=== PATIENT | male | born 1945 | race Caucasian/White ===

== ENCOUNTER 2017-08-23 15:45 | Emergency (ER) | payer MEDICARE ==
[~2017-08-23] VITALS: Ht 182.9 cm; Wt 81.6 kg
[2017-08-23] MEDS ORDERED: TRAZODONE HCL150 MG ORAL (15:50)
[2017-08-23] MEDS ORDERED: ABILIFY10 MG ORAL (15:50)
[2017-08-23] MEDS ORDERED: LATANOPROST2.5 ML BOTH EYES (15:50)
--- NOTE | 2017-08-23 15:58 | Emergency Room Report ---
History of Present Illness General Chief Complaint: Upper Respiratory Illness Source: Medical Record (Yossi Saavedra) Present Illness HPI 71-year-old male patient presents ER BIB ambulance from assisted living facility complaining of cough. patient reports coughing last night. Patient reports cough was keeping him up at night. Patient reports dry cough, denies hemoptysis. Patient denies other symptoms. Patient denies history of PE or DVT. Patient reports no history of asthma. Patient reports history of blockage in her and stent placement 10 years ago. Patient reports no acute problems since that time. Patient reports a history of hypertension, insomnia, diabetes. Patient denies fever, chest pain, shortness of breath. Patient denies history of asthma. (Yossi Saavedra.Marika) Allergies: Coded Allergies: No Known Allergies (Unverified , 08/23/17) Patient History Past Medical History: see triage record Reviewed Nursing Documentation: PMH: Agreed; PSxH: Agreed (Yossi Saavedra) Nursing Documentation-PMH Hx Hypertension: Yes Hx Diabetes: Yes (Yossi Saavedra) Review of Systems All Other Systems: negative except mentioned in HPI (Yossi Saavedra P.ABerta) Physical Exam Vital Signs Date Time Temp Pulse Resp B/P (MAP) Pulse Ox O2 Delivery O2 Flow Rate FiO2 08/23/17 15:38 98.2 70 16 150/88 99 Room Air 98.2 Sp02 EP Interpretation: reviewed, normal General Appearance: well appearing, no apparent distress, alert, GCS 15, non- toxic Head: normocephalic, atraumatic Eyes: bilateral eye normal inspection, bilateral eye PERRL ENT: hearing grossly normal, normal pharynx, no angioedema, normal voice, uvula midline, moist mucus membranes Neck: full range of motion Respiratory: no rhonchi, no respiratory distress, no accessory muscle use, speaking full sentences, wheezing Cardiovascular #1: regular rate, rhythm, no edema Musculoskeletal: back normal, digits/nails normal, gait/station normal, normal range of motion, non-tender, no calf tenderness, Julian's Sign negative Neurologic: alert, oriented x3, responsive, motor strength/tone normal, sensory intact Psychiatric: mood/affect normal (Yossi Saavedra) Medical Decision Making PA Attestation Dr. Corral is my supervising Physician whom patient management has been discussed with. (Yossi Saavedra) Medicare Attestation Please refer to the note for the history exam and presentation I do agree with the workup And have evaluated the patient myself as well Initially patient presents with URI symptoms Clinically no obvious edema However x-ray is concerning for CHF, blood work reveals elevated BNP Patient provided with diuretics Preventively also covered with antibiotics, as the patient did spike a fever Requiring admission Given the patient's insurance coverage is transferred to [facility] for continued care (Otoniel Corral DO) Diagnostic Impression: Primary Impression: Acute CHF (congestive heart failure) ER Course Pt presents to ED c/o cough. DDX considered but are not limited to asthma, viral URI, influenza, bronchitis, pneumonia, CHF, IA. VITAL SIGNS are WNL, patient is afebrile. Low suspicion for CHF per Well's criteria, no hemoptysis, no calf swelling, no recent hx of surgery. Ordered labs, CXR, breathing treatment and medication. ER COURSE Albuterol/Atrovent breathing treatment provided. Following treatment patient states no longer having difficulty with breathing. Patient no longer has decreased breath sounds, still sounds congested, will discharge home with medication. Patient is resting comfortably in no acute distress. EKG shows T wave depressions in V3 and V4, reviewed by Dr. Corral. CBC shows mild elevation outside of normal of WBC. CXR shows cardiomegaly, possible small effusion per official reading. BNP elevated 5245 Troponin 0.018 Patient became febrile, Ordered Tylenol medication for fever. Will monitor. Consult with Dr. Corral. Ordered medication and labs. Patient to be transferred to [place] for probably acute CHF exacerbation. - Please note that this Emergency Department Report was dictated using [employer] therapist technology software, occasionally this can lead to erroneous entry secondary to interpretation by the dictation equipment. Labs Test 08/23/17 16:45 08/23/17 17:26 Sodium Level 140 MMOL/L (136-145) Potassium Level 3.9 MMOL/L (3.5-5.1) Chloride Level 103 MMOL/L (98-107) Carbon Dioxide Level 21 MMOL/L (21-32) Anion Gap 16 mmol/L (5-15) Blood Urea Nitrogen 20 mg/dL (7-18) Creatinine 1.3 MG/DL (0.55-1.30) Estimat Glomerular Filtration Rate 54.7 mL/min (>60) Glucose Level 151 MG/DL (74-106) Calcium Level 8.4 MG/DL (8.5-10.1) Total Bilirubin 0.9 MG/DL (0.2-1.0) Aspartate Amino Transf (AST/SGOT) 17 U/L (15-37) Alanine Aminotransferase (ALT/SGPT) 31 U/L (12-78) Alkaline Phosphatase 92 U/L (46-116) Total Protein 7.7 G/DL (6.4-8.2) Albumin 3.9 G/DL (3.4-5.0) Globulin 3.8 g/dL Albumin/Globulin Ratio 1.0 (1.0-2.7) Total Creatine Kinase 249 U/L (26-308) Troponin I 0.018 ng/mL (0.000-0.056) Pro-B-Type Natriuretic Peptide 5245 pg/mL (0-125) (Yossi Saavedra P.A.) EKG Diagnostic Results Rate: normal Rhythm: NSR ST Segments: other - inverted T waves V3, V4 Other Impression right bundle branch block abnormal EKG ASA given to the pt in ED: Yes PA Scribe Text Gus Saavedra PA-C (Yossi Saavedra P.A.) Rhythm Strip Diag. Results EP Interpretation: yes Rate: 89 Rhythm: NSR, no PVC's, no ectopy PA Scribe Text Gus Saavedra PA-C (Yossi Saavedra P.A.) Chest X-Ray Diagnostic Results Chest X-Ray Diagnostic Results : Chest X-Ray Ordered: Yes # of Views/Limited/Complete: 1 View Indication: Chest Pain EP Interpretation: Yes PA Xray: Interpretation reviewed, by supervising MD, and agrees with findings. Interpretation: no pneumothorax, other Impression: Other - 1. Mild perihilar interstitial prominence. May be vascular congestion or viral pneumonia. No focal infiltrate or consolidation. 2. May be tiny right pleural effusion. Left costophrenic angle not included on the film. PA Scribe Text Gus Saavedra PA-C (Yossi Saavedra P.A.) Last Vital Signs Date Time Temp Pulse Resp B/P (MAP) Pulse Ox O2 Delivery O2 Flow Rate FiO2 08/23/17 15:38 98.2 70 16 150/88 99 Room Air 98.2 (Yossi Saavedra) Disposition: XFER SHT-TRM HOSP Condition: Serious Yossi Saavedra August 23, 2017 15:58 Otoniel Corral DO August 23, 2017 19:22
[2017-08-23] MEDS ORDERED: Albuterol ud Inhalation HHN ONE (16:00)
[2017-08-23] MEDS ORDERED: Ipratropium 0.02% Inh Soln 2.5ml UD HHN ONE (16:00)
[2017-08-23] MEDS ORDERED: Promethazine/Codeine 5ml UD ORAL ONE (16:15)
[2017-08-23 17:25] LABS: ANION GAP 16 mmol/L (5-15); BLOOD UREA NITROGEN 20 mg/dL (7-18); CALCIUM 8.4 MG/DL (8.5-10.1); CARBON DIOXIDE 21 MMOL/L (21-32); CHLORIDE 103 MMOL/L (98-107); CREATININE 1.3 MG/DL (0.55-1.30); POTASSIUM 3.9 MMOL/L (3.5-5.1); SODIUM 140 MMOL/L (136-145)
[2017-08-23 17:29] LABS: ALANINE AMINOTRANSFERASE 31 U/L (12-78); ALBUMIN 3.9 G/DL (3.4-5.0); ALKALINE PHOSPHATASE 92 U/L (46-116); ASPARTATE AMINO TRANSFERASE 17 U/L (15-37); BILIRUBIN,TOTAL 0.9 MG/DL (0.2-1.0)
[2017-08-23 18:10] LABS: CREATINE KINASE 249 U/L (26-308)
[2017-08-23 18:54] VITALS: BP 147/84
[2017-08-23] MEDS ORDERED: Acetaminophen 500mg (ES) tab ORAL ONE (19:15)
[2017-08-23 19:25] VITALS: BP 148/94
[2017-08-23 19:42] LABS: HEMATOCRIT 32.8 % (42.0-52.0); HEMOGLOBIN 10.8 G/DL (14.2-18.0); MEAN CORPUSCULAR VOLUME 89 FL (80-99); PLATELET COUNT 194 K/UL (150-450); RED BLOOD COUNT 3.68 M/UL (4.70-6.10); RED CELL DISTRIBUTION WIDTH 13.6 % (11.6-14.8); WHITE BLOOD COUNT 11.2 K/UL (4.8-10.8)
[2017-08-23 20:44] LABS: BILIRUBIN, URINE NEGATIVE (NEGATIVE); COLOR,URINE AMBER; GLUCOSE, URINE (UA) NEGATIVE (NEGATIVE); KETONES,URINE NEGATIVE (NEGATIVE); LEUKOCYTE ESTERASE ,URINE 1+ (NEGATIVE); NITRITE,URINE NEGATIVE (NEGATIVE); PH,URINE 6 (4.5-8.0); PROTEIN,URINE 3+ (NEGATIVE); UROBILINOGEN,URINE NORMAL MG/DL (0.0-1.0)
[2017-08-23 20:50] LABS: APPEARANCE,URINE SLIGHTLY CLOUDY
[2017-08-23 22:33] VITALS: BP 106/64
[2017-08-23 23:28] VITALS: BP 108/55
[2017-08-23 23:30] VITALS: BP 108/55
--- NOTE | 2017-08-24 11:39 | Cardiology Report ---
APPROVED REPORT EKG Measurement Heart [id number] Normal sinus rhythm with sinus arrhythmia Right bundle branch block Inferior infarct, age undetermined Anterolateral infarct, age undetermined Abnormal ECG
== END 2017-08-23 23:30 | disposition short-term general hospital (02) ==
LOC: EDBD 15:45 → EMR 18:41 → EDBEDREQ 18:53 → EMR 23:30
DX: I50.9 Heart failure, unspecified (principal); I45.10 Unspecified right bundle-branch block; E11.9 Type 2 diabetes mellitus without complications; I11.0 Hypertensive heart disease with heart failure
CPT/HCPCS: 36415; 71045; 80053; 81003; 82550; 82962; 83605; 83880; 84484; 85007; 85025; 86710; 87040; 93005; 94640; 94664; 99285; J1940; J1956

== ENCOUNTER 2017-10-20 18:46 | Emergency (ER) | payer MEDICARE ==
[~2017-10-20] VITALS: Ht 185.4 cm; Wt 102.1 kg
[~2017-10-20 18:46] MED LIST: ABILIFY10 MG ORAL; LATANOPROST2.5 ML BOTH EYES; TRAZODONE HCL150 MG ORAL
[2017-10-20] MEDS ORDERED: LORazepam 1mg tab ORAL ONE (19:15)
--- NOTE | 2017-10-20 19:18 | Emergency Room Report ---
History of Present Illness General Chief Complaint: Male Urogenital Problems Source: Patient, Medical Record Present Illness HPI 72-year-old male with a history of hypertension, diabetes, coronary disease status post stent, depression, anxiety presents with swelling underneath the glans of his penis since last night. He reports is not hurt, it just swollen. He also reports he has chronic lower extremity edema but feels like that's been getting slightly worse. He denies any pain anywhere in his body, denies fevers , gestures breath, denies dysuria, hematuria, testicle pain, any other problems. Allergies: Coded Allergies: No Known Allergies (Unverified , 08/23/17) Patient History Past Medical History: see triage record Reviewed Nursing Documentation: PMH: Agreed; PSxH: Agreed Nursing Documentation-PMH Past Medical History: No History, Except For Hx Cardiac Problems: Yes - high cholesterol, stent Hx Hypertension: Yes Hx Diabetes: Yes Review of Systems All Other Systems: negative except mentioned in HPI Physical Exam Vital Signs Date Time Temp Pulse Resp B/P (MAP) Pulse Ox O2 Delivery O2 Flow Rate FiO2 10/20/17 18:43 97.8 100 20 137/97 99 Room Air 97.9 Sp02 EP Interpretation: reviewed, normal General Appearance: no apparent distress, alert, non-toxic Head: normocephalic Eyes: bilateral eye normal inspection, bilateral eye PERRL, bilateral eye EOMI ENT: normal ENT inspection, hearing grossly normal, normal pharynx, no angioedema, normal voice, moist mucus membranes Neck: normal inspection, full range of motion, supple, supple/symm/no masses Respiratory: chest non-tender, lungs clear, normal breath sounds, chest symmetrical, palpation of chest normal Cardiovascular #1: normal peripheral pulses, regular rate, rhythm, edema - 2+b/ l LE edema Cardiovascular #2: 2+ radial (R), 2+ radial (L) Gastrointestinal: normal inspection, non tender, soft, no mass, no guarding, no rebound Rectal: deferred Genitourinary: normal inspection, no CVA tenderness, no vertebral tenderness, penis normal - glans normal, urethra normal, testes adn scrotum normal, perineum normal with no erythema/crepitus; but ventral portion of shaft with edema, minimal erythema, no tenderness, scrotum normal Musculoskeletal: back normal, gait/station normal, normal range of motion, non- tender, no calf tenderness, Julian's Sign negative Neurologic: alert, responsive, housekeeper caregiver III-XII nml as tested, motor strength/tone normal, sensory intact, speech normal Psychiatric: judgement/insight normal, memory normal, mood/affect normal, no suicidal/homicidal ideation Skin: normal color, no rash, warm/dry, normal turgor Lymphatic: no adenopathy Medical Decision Making Diagnostic Impression: Primary Impression: Posthitis ER Course patient with non-purulent posthitis, only the skin around the glans involved, sparing the glans, no urethral discharge; given h/o DM most likely etiology is candidiasis, will initiate clotrimazole 1% bid x 3 weeks. patient also has bilateral LE edema, no cp, no sob, O2 sat at 100% on RA, normal lung sounds, but labs c/w chf given elevated pro-bnp; he reports he is not on a diuretic and we'll also give a prescription for 3 days of Lasix as well as potassium supplementation. Last Vital Signs Date Time Temp Pulse Resp B/P (MAP) Pulse Ox O2 Delivery O2 Flow Rate FiO2 10/20/17 18:43 97.8 100 20 137/97 99 Room Air 97.9 Disposition: HOME, SELF-CARE Condition: Stable RAMSEY PHELPS M.D Oct 20, 2017 19:18
[2017-10-20 19:47] VITALS: BP 154/98
[2017-10-20 19:55] LABS: BASOPHILS % (AUTO) 1.3 % (0.0-2.0); EOSINOPHILS % (AUTO) 5.7 % (0.0-3.0); HEMATOCRIT 37.5 % (42.0-52.0); LYMPHOCYTES % (AUTO) 18.7 % (20.0-45.0); MEAN CORPUSCULAR VOLUME 83 FL (80-99); MONOCYTES % (AUTO) 10.7 % (1.0-10.0); NEUTROPHILS % (AUTO) 63.6 % (45.0-75.0); PLATELET COUNT 293 K/UL (150-450); RED BLOOD COUNT 4.51 M/UL (4.70-6.10); RED CELL DISTRIBUTION WIDTH 14.1 % (11.6-14.8); WHITE BLOOD COUNT 7.4 K/UL (4.8-10.8)
[2017-10-20 20:09] LABS: APPEARANCE,URINE CLEAR; BILIRUBIN, URINE NEGATIVE (NEGATIVE); GLUCOSE, URINE (UA) 1+ (NEGATIVE); KETONES,URINE NEGATIVE (NEGATIVE); LEUKOCYTE ESTERASE ,URINE NEGATIVE (NEGATIVE); NITRITE,URINE NEGATIVE (NEGATIVE); PH,URINE 5 (4.5-8.0); PROTEIN,URINE 3+ (NEGATIVE); UROBILINOGEN,URINE 4 MG/DL (0.0-1.0)
[2017-10-20 20:10] LABS: ANION GAP 12 mmol/L (5-15); BLOOD UREA NITROGEN 28 mg/dL (7-18); CALCIUM 8.2 MG/DL (8.5-10.1); CARBON DIOXIDE 23 MMOL/L (21-32); CHLORIDE 105 MMOL/L (98-107); COLOR,URINE YELLOW; CREATININE 1.8 MG/DL (0.55-1.30); POTASSIUM 3.9 MMOL/L (3.5-5.1); SODIUM 140 MMOL/L (136-145)
[2017-10-20] MEDS ORDERED: JOCK ITCH15 G1 TP (20:56)
[2017-10-20 20:59] VITALS: BP 134/90
[2017-10-20] MEDS ORDERED: FUROSEMIDE40 MG ORAL (20:59)
[2017-10-20] MEDS ORDERED: POTASSIUM CHLO20 ME1 ORAL (20:59)
[2017-10-20 21:50] VITALS: BP 134/85
[2017-10-20 21:52] VITALS: BP 134/85
== END 2017-10-20 21:25 | disposition home or self-care (01) ==
LOC: EDBD 18:46 → EMR 19:10
DX: N47.7 Other inflammatory diseases of prepuce (principal); F32.9 Major depressive disorder, single episode, unspecified; F41.9 Anxiety disorder, unspecified; E78.00 Pure hypercholesterolemia, unspecified; Z95.5 Presence of coronary angioplasty implant and graft; I10 Essential (primary) hypertension; E11.9 Type 2 diabetes mellitus without complications
CPT/HCPCS: 36415; 80048; 81001; 83880; 85025; 87086; 96372; 99283; J1940